=== PATIENT | female | born 2000 | race Caucasian/White ===

== ENCOUNTER 2022-02-10 06:07 | Inpatient (IN) | payer MEDICAID ==
[2022-02-10] MEDS ORDERED: Sodium Chloride 0.9% 10 ML Syringe FLUSH PRN ×2 (06:30→14:32)
[2022-02-10] MEDS ORDERED: Tranexamic Acid 1,000 MG in Sodium Chloride 0.9% 100 ML IV PRN (06:30)
[2022-02-10] MEDS ORDERED: Lactated Ringers 1,000 ML IV ONE (06:30)
[2022-02-10] MEDS ORDERED: Lidocaine 1% 30 ML SDV INJECT PRN (06:30)
[2022-02-10] MEDS ORDERED: Methylergonovine 0.2 MG/1 ML Amp IM PRN (06:30)
[2022-02-10] MEDS ORDERED: Carboprost Tromethamine 250 MCG/1 ML Amp IM PRN (06:30)
[2022-02-10] MEDS ORDERED: Oxytocin/Normal Saline 30 UNIT/500 ML BAG IV SCH ×2 (06:30→11:00)
[2022-02-10] MEDS ORDERED: Ondansetron 4 MG/2 ML SDV IVPUSH PRN (06:30)
[2022-02-10] MEDS ORDERED: Misoprostol 400 MCG (4 X 100 MCG TAB) RECTAL PRN (06:30)
[2022-02-10] MEDS ORDERED: fentaNYL 100 MCG/2 ML SDV IVPUSH PRN ×2 (06:33→08:04)
[2022-02-10] MEDS: Lactated Ringers 1,000 ML IV SCH ×2 (08:20→10:56)
[2022-02-10] MEDS ORDERED: EPINEPHrine 1 MG/ML SDV ONE ×2 (09:44→09:58)
[2022-02-10] MEDS ORDERED: fentaNYL 100 MCG/2 ML SDV ONE (09:44)
[2022-02-10] MEDS ORDERED: Sodium Bicarbonate 4.2% 2.5 MEQ/5 ML SDV ONE ×2 (09:44→09:58)
[2022-02-10] MEDS ORDERED: Sodium Chloride 0.9% 20 ML SDV ONE (09:58)
[2022-02-10] MEDS ORDERED: fentaNYL 100 MCG/2 ML SDV ITHECAL ONE (09:58)
[2022-02-10] MEDS ORDERED: Oxytocin 10 Units/1 ML SDV IM PRN (14:32)
[2022-02-10] MEDS ORDERED: Benzocaine/Menthol 20%-0.5% Spray 78 GM Cannister TOP PRN (14:32)
[2022-02-10] MEDS ORDERED: Simethicone 80 MG Tab.Chew PO PRN (14:32)
[2022-02-10] MEDS ORDERED: Zolpidem 5 MG Tab PO PRN (14:32)
[2022-02-10] MEDS: Ibuprofen 800 MG Tab PO PRN (18:20)
[2022-02-11] MEDS: Ibuprofen 800 MG Tab PO PRN ×3 (02:29→21:33)
[2022-02-11] MEDS: Docusate Sodium 100 MG Cap PO PRN ×2 (02:30→09:24)
[2022-02-11] MEDS: Prenatal Multivitamin with Calcium/Folic Acid/Iron Tab PO SCH (09:24)
[2022-02-11] MEDS: Acetaminophen 325 MG Tab PO PRN ×2 (09:24→19:46)
[2022-02-12] MEDS: Docusate Sodium 100 MG Cap PO PRN (10:04)
[2022-02-12] MEDS: Prenatal Multivitamin with Calcium/Folic Acid/Iron Tab PO SCH ×2 (10:05→10:08)
[2022-02-12] MEDS: Ibuprofen 800 MG Tab PO PRN (10:05)
== END 2022-02-12 11:35 | disposition home or self-care (01) | DRG 807 ==
LOC: DL.OBCHECK 06:07 → DL.OB 06:26
PROVIDERS: ADMIT Family Medicine; ATTEND Family Medicine
PROC: 10E0XZZ Delivery of Products of Conception, External Approach (ICD-10-PCS; principal; 2022-02-10)
DX: O13.4 Gestational [pregnancy-induced] hypertension without significant proteinuria, complicating childbirth (principal); Z37.0 Single live birth; Z3A.38 38 weeks gestation of pregnancy; O69.81X0 Labor and delivery complicated by cord around neck, without compression, not applicable or unspecified; Z20.822 Contact with and (suspected) exposure to COVID-19; Z86.16 Personal history of COVID-19; O62.2 Other uterine inertia; O70.0 First degree perineal laceration during delivery
CPT/HCPCS: 36415; 59409; 81003; 82565; 82570; 83615; 84156; 84450; 84460; 84520; 84550; 85027; A9270-GY; J0171; J2405; J2590; J3010; J7120; U0002

== ENCOUNTER 2023-06-14 07:52 | Emergency (ER) | payer MEDICAID ==
[2023-06-14] MEDS ORDERED: Ondansetron 4 MG/2 ML SDV IVPUSH ONE (08:23)
[2023-06-14] MEDS ORDERED: Thiamine 200 MG/2 ML MDV IVPUSH ONE (08:27)
[2023-06-14] MEDS ORDERED: MVI, Adult with Vitamin K 10 ML SDV IV ONE (08:27)
[2023-06-14] MEDS ORDERED: Lactated Ringers 1,000 ML IV SCH ×2 (08:30→09:15)
[2023-06-14] MEDS ORDERED: diphenhydrAMINE 50 MG/ML SDV IVPUSH ONE (08:34)
[2023-06-14 08:40] LABS: APPEARANCE,URINE SLIGHTLY CLOUDY (CLEAR); BILIRUBIN,URINE SMALL (NEGATIVE); COLOR,URINE YELLOW (YELLOW); GLUCOSE,URINE NEGATIVE (NEGATIVE); KETONES,URINE >=160 (NEGATIVE); LEUKOCYTE ESTERASE,URINE NEGATIVE (NEGATIVE); NITRITE,URINE NEGATIVE (NEGATIVE); OCCULT BLOOD,URINE NEGATIVE (NEGATIVE); PH,URINE 6.5 (5.0-9.0); PROTEIN,URINE 100 (NEGATIVE)
[2023-06-14 08:41] LABS: BASOPHILS PERCENT AUTO 0.1 % (0.0-1.0); HEMATOCRIT 38.2 % (37.0-47.0); HEMOGLOBIN 13.6 g/dL (12.0-16.0); LYMPHOCYTES PERCENT AUTO 5.6 % (20.5-50.1); MEAN CORPUSCULAR HEMOGLOBIN 31.5 pg (27.0-34.0); MEAN CORPUSCULAR HGB CONC 35.6 g/dL (33.0-35.0); MEAN CORPUSCULAR VOLUME 88.4 fL (80-100); MONOCYTES PERCENT AUTO 2.3 % (2-8); PLATELET COUNT,PLT 186 10^3/uL (150-450); RED BLOOD CELL COUNT 4.32 10^6/uL (4.2-5.4); WHITE BLOOD CELL COUNT,WBC 9.1 10^3/uL (5.0-10.0)
[2023-06-14 08:55] LABS: A/G RATIO 1.3; ALBUMIN 4.3 g/dL (3.4-5.0); ANION GAP 17.5 mEq/L (7-13); BILIRUBIN TOTAL 0.7 mg/dL (0.2-1.0); CALCIUM 8.9 mg/dL (8.5-10.1); CREATININE 0.83 mg/dL (0.55-1.02); EST CRCL DRUG DOSING (CG) 84.61 mL/min; MAGNESIUM 1.8 mg/dL (1.8-2.4); POTASSIUM,K 3.5 mmol/L (3.5-5.1); PROTEIN TOTAL,TP 7.5 g/dL (6.4-8.2)
[2023-06-14 09:03] LABS: AMORPHOUS SEDIMENT,URINE FEW /HPF (NOT SEEN); BACTERIA,URINE MODERATE /HPF (0-FEW/HPF); EPITHELIAL CELLS,URINE MANY /HPF (NOT SEEN); MUCUS,URINE MODERATE /LPF (NOT SEEN); RBC,URINE 0-5 /HPF (0-5)
== END 2023-06-14 10:14 | disposition home or self-care (01) ==
LOC: DL.ED 07:52
DX: O21.0 Mild hyperemesis gravidarum (principal); O99.891 Other specified diseases and conditions complicating pregnancy; R19.7 Diarrhea, unspecified; Z3A.01 Less than 8 weeks gestation of pregnancy
CPT/HCPCS: 36415; 80053; 81001; 81025; 83735; 85025; 96361; 96365; 96375; 99283; 99284; J1200; J2405; J3411; J7120; J3490

== ENCOUNTER 2024-01-14 11:36 | Inpatient (IN) | payer MEDICAID ==
[~2024-01-14 11:36] MED LIST: Mineral Oil 30 ML UD Cup PO ONE
[2024-01-14] MEDS: Lactated Ringers 1,000 ML IV SCH ×2 (11:50→13:46)
[2024-01-14] MEDS ORDERED: Tranexamic Acid 1,000 MG in Sodium Chloride 0.9% 100 ML IV PRN (12:11)
[2024-01-14] MEDS ORDERED: ePHEDrine 50 MG/ML SDV IVPUSH PRN (12:11)
[2024-01-14] MEDS ORDERED: Acetaminophen 325 MG Tab PO PRN (12:11)
[2024-01-14] MEDS ORDERED: Misoprostol 400 MCG (4 X 100 MCG TAB) RECTAL PRN (12:11)
[2024-01-14] MEDS ORDERED: Naloxone 2 MG/2 ML Syringe IVPUSH PRN (12:11)
[2024-01-14] MEDS ORDERED: Acetaminophen/oxyCODONE 325-5 MG Tab PO PRN (12:11)
[2024-01-14] MEDS ORDERED: Methylergonovine 0.2 MG/1 ML Amp IM PRN (12:11)
[2024-01-14] MEDS ORDERED: Carboprost Tromethamine 250 MCG/1 ML Amp IM PRN (12:11)
[2024-01-14] MEDS ORDERED: Ketorolac 30 MG/ML SDV ONE (12:23)
[2024-01-14] MEDS ORDERED: Oxytocin 10 Units/1 ML SDV ONE (12:23)
[2024-01-14] MEDS ORDERED: Dexamethasone 4 MG/ML SDV ONE (12:23)
[2024-01-14] MEDS ORDERED: Ondansetron 4 MG/2 ML SDV ONE (12:23)
[2024-01-14] MEDS ORDERED: ceFAZolin 2 GM Vial ONE (12:23)
[2024-01-14] MEDS ORDERED: Oxytocin/Normal Saline 30 UNIT/500 ML BAG ONE (12:25)
[2024-01-14 12:32] LABS: HEMATOCRIT 34.3 % (37.0-47.0); HEMOGLOBIN 11.3 g/dL (12.0-16.0); MEAN CORPUSCULAR HEMOGLOBIN 30.5 pg (27.0-34.0); MEAN CORPUSCULAR HGB CONC 32.9 g/dL (33.0-35.0); MEAN CORPUSCULAR VOLUME 92.5 fL (80-100); RED BLOOD CELL COUNT 3.71 10^6/uL (4.2-5.4); WHITE BLOOD CELL COUNT,WBC 7.7 10^3/uL (5.0-10.0)
[2024-01-14] MEDS ORDERED: Tranexamic Acid 1,000 MG/10 ML Vial ONE (12:33)
[2024-01-14] MEDS: Oxytocin/Normal Saline 30 UNIT/500 ML BAG IV SCH (13:46)
[2024-01-14] MEDS: Terbutaline 1 MG/ML SDV SUBCUT ONE (17:48)
[2024-01-14] MEDS: Mineral Oil 30 ML UD Cup ONE ×2 (17:48)
[2024-01-14] MEDS: Simethicone 80 MG Tab.Chew PO SCH (17:49)
[2024-01-14] MEDS: Ketorolac 30 MG/ML SDV IVPUSH SCH ×2 (17:57→20:08)
[2024-01-14] MEDS: Ondansetron 4 MG/2 ML SDV IVPUSH PRN (18:36)
[2024-01-14] MEDS: diphenhydrAMINE 50 MG/ML SDV IVPUSH PRN (20:07)
[2024-01-15 07:11] LABS: HEMATOCRIT 29.8 % (37.0-47.0); HEMOGLOBIN 9.9 g/dL (12.0-16.0); MEAN CORPUSCULAR HEMOGLOBIN 30.9 pg (27.0-34.0); MEAN CORPUSCULAR HGB CONC 33.2 g/dL (33.0-35.0); MEAN CORPUSCULAR VOLUME 93.1 fL (80-100); RED BLOOD CELL COUNT 3.2 10^6/uL (4.2-5.4); WHITE BLOOD CELL COUNT,WBC 11.5 10^3/uL (5.0-10.0)
[2024-01-15] MEDS: Ferrous Sulfate 325 MG Tab PO SCH (08:08)
[2024-01-15] MEDS: Prenatal Multivitamin with Calcium/Folic Acid/Iron Tab PO SCH (08:08)
[2024-01-15] MEDS: Docusate Sodium 100 MG Cap PO PRN (08:08)
[2024-01-15] MEDS: Ibuprofen 800 MG Tab PO PRN (16:50)
[2024-01-15] MEDS: Acetaminophen/oxyCODONE 325-5 MG Tab PO PRN (16:51)
== END 2024-01-16 13:55 | disposition home or self-care (01) | DRG 787 ==
LOC: DL.OBCHECK 11:36 → DL.OB 12:13 → OBSVTOIN 13:08
PROVIDERS: ADMIT Family Medicine; ATTEND Family Medicine
PROC: 10D00Z1 Extraction of Products of Conception, Low, Open Approach (ICD-10-PCS; principal; 2024-01-14 12:00)
DX: O32.8XX0 Maternal care for other malpresentation of fetus, not applicable or unspecified (principal); D62 Acute posthemorrhagic anemia; Z37.0 Single live birth; Z3A.37 37 weeks gestation of pregnancy; O90.81 Anemia of the puerperium
CPT/HCPCS: 01961; 36415; 59025; 59409; 59412; 76815; 84112; 85027; 86850; 86900; 86901; A9270-GY; J1200; J1885; J2405; J2590; J7120